=== PATIENT | female | born 1970 | race Caucasian/White ===

== ENCOUNTER 2024-02-21 10:45 | Outpatient (OUT) | payer BC, SELFPAY ==
--- NOTE | 2024-02-21 11:03 | ECG_ITS ---
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
== END 2024-02-21 10:46 | disposition home or self-care (01) ==
LOC: PST 10:47
PROVIDERS: PCP Internal Medicine; Visit Provider Surgery
DX: Z01.810 Encounter for preprocedural cardiovascular examination (principal); L98.9 Disorder of the skin and subcutaneous tissue, unspecified
CPT/HCPCS: 93005

== ENCOUNTER 2024-02-22 07:42 | Day surgery (SDC) | payer BC, SELFPAY ==
[2024-02-21 11:32] VITALS: BP 116/78; PULSE 59; TEMP 36.3; O2SAT 98; BMI 23.0
[2024-02-21 11:38] VITALS: BP 116/78; PULSE 59; TEMP 36.3; O2SAT 98; BMI 23.0
--- OUTSIDE RECORDS SUMMARY | 2024-02-22 07:46 | XMS_ITS | CCD ---
Author Organization [facility] Care Team Providers Care Automobile Service Writer Name Role Phone RASHEED DEL RIO Attending Unavailable SAMMY MCCARTHY Attending SAMMY Walls Referring Unavailable PATY WALDROP Attending SAMMY Walls Referring Unavailable Results Test Name Value Interpretation Reference Range Facil ity BI MAMMOGRAM SCREENING TOMOS YNTHESIS BILATERALon 02-11-2024 BI MAMMOGRAM SCREENING TOMOSYNTHESIS BILATERAL This is a summary report. The complete report is available in the patient's medical record. If you cannot access the medical record, please contact the sending organization for a detailed fax or copy. EXAMINATION: BI MAMMOGRAM SCREENING TOMOSYNTHESIS BILATERAL CLINICAL HISTORY:screening COMPARISON: January 29, 2023. RESULT: Digital mammography and 3D tomosynthesis of bilateral breasts was performed. Density: Almost entirely fatty [1] Overall appearance is stable. Left axillary surgical clips. There is no suspicious mass, asymmetry, architectural distortion, or calcification IMPRESSION: BIRADS 1 - Negative Follow-up: Routine Screening Mamm Board Certified Radiologists. Accredited by the ACR and FDA. MAMMOGRAPHY IS VERY IMPORTANT TO YOUR HEALTH. THE [employer] GUIDELINES RECOMMEND THAT WOMEN 40 YEARS OF AGE AND OLDER SHOULD HAVE A MAMMOGRAM EVERY YEAR. A REMINDER LETTER WILL BE SENT AT THE APPROPRIATE TIME. THIS FACILITY UTILIZES A REMINDER SYSTEM TO ENSURE ALL PATIENTS RECEIVE REMINDER NOTIFICATIONS AT THE APPROPRIATE TIME BASED ON THE RECOMMENDATIONS OF THIS EXAM. THIS INCLUDES REMINDERS FOR ROUTINE SCREENING MAMMOGRAMS, DIAGNOSTIC MAMMOGRAMS IN WHICH THE PATIENT IS ASKED TO RETURN FOR ADDITIONAL VIEWS, OR OTHER BREAST IMAGING INTERVENTIONS WHEN APPROPRIATE. THE PATIENT WILL BE PLACED IN THE APPROPRIATE REMINDER SYSTEM INCLUDING A REMINDER AT THE APPROPRIATE TIME FOR ANY PENDING ADDITIONAL VIEWS. TRANSCRIBED BY: ELECTRONICALLY SIGNED BY: Carlos Moses MD Normal Not Available Encounters Encounter Date Encounter Type Care Provider Facility Start: 02-14-2024 End: 02-14-2024 ambulatory PATY WALDROP Not Available Start: 02-11-2024 End: 02-12-2024 ambulatory SAMMY MCCARTHY Not Available Start: 02-02-2024 End: 02-02-2024 ambulatory SAMMY MCCARTHY Not Available Start: 12-28-2023 End: 12-28-2023 ambulatory RASHEED DEL RIO Not Available Payers Date Payer Category Payer Unknown [id number] 1970 Unknown [id number] 1970 Unknown [id number] 1970 Unknown [id number] 1970 Unknown [id number] Summary Purpose Family History No Family History Records Found Advance Directives No Advanced Directives Records Found Additional Source Comments INFORMATION SOURCE (unrecogn ized section and content) DATE CREATED AUTHOR 02/15/2024 [facility] EPIC FOR RECORDS PERTAINING TO PATIENTS WHO ARE OR HAVE BEEN ENROLLED IN A CHEMICAL DEPENDENCY/SUBSTANCEABUSE PROGRAM, SOME INFORMATION MAY BE OMITTED. This clinical summary was aggregated from multiple sources. Caution should be exercised in using it in the provision of clinical care. This summary normalizes information from multiple sources, and as a consequence, information in this document may materially change the coding, format and clinical context of patient data. In addition, data may be omitted in some cases. CLINICAL DECISIONS SHOULD BE BASED ON THE PRIMARY CLINICAL RECORDS. [facility] [employer] provides no warranty or guarantee of the accuracy or completeness of information in this document.
[2024-02-22 07:47] VITALS: BP 112/64; PULSE 63; TEMP 36.2; O2SAT 100; BMI 22.7
[2024-02-22] MEDS: LACTATED RINGER'S SOLUTION 1,000 ML 50 ML IV (08:24)
[2024-02-22] MEDS: CLINDAMYCIN PHOSPHATE/D5W 600 MG/50 ML PIGGYBACK 100 MG IV (08:30)
[2024-02-22] MEDS: LIDOCAINE HCL 1%-EPINEPHRINE 1:100,000 20 ML MDV 4 ML INJ (08:53)
[2024-02-22 08:54] VITALS: BP 99/54; PULSE 64; TEMP 36.3; O2SAT 96
[2024-02-22 09:09] VITALS: BP 128/81; PULSE 68; O2SAT 100
--- NOTE | 2024-02-22 09:13 | P.ON_ITS ---
Date of procedure: 02/22/24 Pre-op diagnosis: vascular back lesion Post-op diagnosis: same as pre-op Procedure: Excision of left posterior back lesion Procedure Details The patient was taken to Operating Room, identified as the correct patient and the procedure verified. A Time Out was held and the above information confirmed. The patient was placed in a prone position and anesthesia was induced per anesthesia team, along with placement of EPC cuffs. The left upper back was was prepped and draped in a sterile fashion. The area of planned incision was injected with 1% lidocaine with epi, approximately 4ml was used. A 15 blade was used to make an ellipse style incision around the left upper back lesion along the lines of Kellee. It was approximately 5 cm in length. Use of careful sharp and blunt dissection was carried out to remove the lesion in its entirety. The l esion was sent to pathology. The skin edges and incision site deep tissues were cauterized to ensure proper hemostasis. The skin incision was closed in a layered fashion. 3-0 Vircyl deep dermal sutures followed by a running 3-0 monocryl subcuticular running stitch. The area was cleansed and skin glue and steri strips were then applied. Instrument, sponge, and needle counts were correct at the conclusion of the case. Patient tolerated the procedure well without any complications.? Patient was transferred to PACU in stable condition.? Anesthesia: MAC Surgeon: Wilson Queen Estimated blood loss (mL): 5 Pathology: other (back lesion ) Condition: stable Disposition: PACU
[2024-02-22 09:24] VITALS: BP 114/65; PULSE 67; O2SAT 99
== END 2024-02-22 09:32 | disposition home or self-care (01) ==
PROVIDERS: PCP Internal Medicine; Visit Provider Surgery
PROC: (CPT 300; principal; 2024-02-22 09:10)
DX: L98.8 Other specified disorders of the skin and subcutaneous tissue (principal); I10 Essential (primary) hypertension; D64.9 Anemia, unspecified; Z87.891 Personal history of nicotine dependence; M19.90 Unspecified osteoarthritis, unspecified site; F41.9 Anxiety disorder, unspecified
CPT/HCPCS: 11403; 12032; 88305; J2704